=== PATIENT | female | born 1945 | race Caucasian/White ===

== ENCOUNTER 2019-06-28 00:52 | Emergency (ER) | payer MEDICARE, OTHER ==
[~2019-06-28] VITALS: Ht 157.5 cm; Wt 79.4 kg
[2019-06-28] MEDS: IV NORMAL SALINE 1,000ML 1,000 ML IV ONE (02:00)
[2019-06-28] MEDS: FAMOTIDINE 20 MG/2 ML VIAL IVP ONE (02:00)
[2019-06-28] MEDS: ONDANSETRON PF 4 MG/2 ML VIAL. IV ONE (02:00)
[2019-06-28 02:07] LABS: BASO % 0 % (0-3); EOS % 1 % (0-3); HEMOGLOBIN 14.1 g/dL (12.0-15.5); LYMPH % 11 % (24-48); MEAN CORPUSCULAR HEMOGLOBIN 30 pg (25-35); MEAN CORPUSCULAR HGB CONC 34 g/dL (31-37); MEAN CORPUSCULAR VOLUME 87 fL (79-100); MONO # 0.5 x10^3/uL (0.0-1.1); MONO % 6 % (0-9); NEUT # 7.3 x10^3uL (1.8-7.7); NEUT % 82 % (31-73); PLATELET COUNT 86 x10^3/uL (140-400); RED BLOOD COUNT 4.73 x10^6/uL (3.50-5.40); RED CELL DISTRIBUTION WIDTH 14.1 % (11.5-14.5); WHITE BLOOD COUNT 8.9 x10^3/uL (4.0-11.0)
[2019-06-28 02:21] LABS: ALBUMIN 3.8 g/dL (3.4-5.0); ALBUMIN/GLOBULIN RATIO 1.2 (1.0-1.7); CALCIUM 9.2 mg/dL (8.5-10.1); CREATININE 1.1 mg/dL (0.6-1.0); GFR 48.3; POTASSIUM 3.9 mmol/L (3.5-5.1); TOTAL PROTEIN 6.9 g/dL (6.4-8.2)
[2019-06-28 02:23] LABS: BILIRUBIN,URINE NEG (NEG); CLARITY,URINE CLEAR; COLOR,URINE YELLOW; GLUCOSE,URINE NEG (NEG)
[2019-06-28 02:24] LABS: BACTERIA,URINE 0 /HPF (0-FEW); NITRITE,URINE NEG (NEG); RBC,URINE 0 /HPF (0-2); SQUAMOUS EPITHELIAL CELL,UR OCC /LPF; UROBILINOGEN,URINE 0.2 mg/dL (0.2 mg/dL); WBC,URINE OCC /HPF (0-4)
--- NOTE | 2019-06-28 02:41 | RAD ---
EXAM: CT ABDOMEN/PELVIS WITHOUT CONTRAST. HISTORY: Abdominal pain, nausea/vomiting. Renal cancer. TECHNIQUE: Computed tomography of the abdomen and pelvis was performed without intravenous contrast. COMPARISON: 07/08/2010. FINDINGS: Lung windows through the visualized portions of the bases reveal a trace right pleural effusion. There is atelectasis in both bases. Bone windows reveal no suspicious lesions. A large upper abdominal mass appears to arise from a pancreatic head. It measures 12.3 cm craniocaudally and 7.4 x 7.2 cm craniocaudally. There is some dilatation of the upstream pancreatic duct. The upstream pancreas is not atrophic. There is no biliary dilatation. There are changes of left nephrectomy. No local recurrence is identified. There is nodular thickening of the left adrenal gland without a discrete mass. This is stable chronically. The right adrenal gland is unremarkable. 2 mildly hyperdense nodules in the right kidney are indeterminate but may represent proteinaceous/hemorrhagic cysts. These were not seen previously. The largest measures 1.6 cm. Another in the interpolar region is less well seen but measures 1.3 cm. Multiple hypoattenuating hepatic lesions are consistent with cysts. Some have decreased in size. The largest measures 4.5 cm. No suspicious lesions are appreciated without contrast. Gallstones are noted. The spleen is not enlarged. There are no pathologically enlarged lymph nodes. Sigmoid diverticulosis is moderate to severe. A calcification within the uterus is likely a degenerated fibroid measuring 1.1 cm. There is no small bowel obstruction. A rim calcified splenic artery aneurysm distally is stable chronically and measures 1.2 cm. IMPRESSION: 1. A 12 cm mass within the upper abdomen appears to arise from the pancreatic head. Its morphology is not typical of pancreatic adenocarcinoma, though this cannot be excluded. Metastatic disease to the pancreas in the setting of remote renal cell carcinoma, versus other primary pancreatic neoplasms are the main considerations. Postcontrast CT or MRI is recommended when feasible. 2. No local recurrence status post left nephrectomy. 3. Cholelithiasis. 4. Dense nodules in the right kidney may represent proteinaceous cysts but are indeterminate. Again, CT or MRI with/without contrast could further evaluate. 5. Chronically stable rim calcified 1.2 cm splenic artery aneurysm distally. *One or more of the following individualized dose reduction techniques were utilized for this examination: 1. Automated exposure control. 2. Adjustment of the mA and/or kV according to patient size. 3. Use of iterative reconstruction technique. Electronically signed by: Radha Marlow MD (06/28/2019 2:38 AM) [facility]
--- NOTE | 2019-06-28 03:02 | PHYS DOC ---
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 Denies fever/chills. Denies trauma. Denies known sick contacts. Denies constipation. Reports had a "good BM" approximately 3 hours ago. Review of Systems Review of Systems Constitutional: Denies fever or chills Eyes: Denies redness or eye pain HENT: Denies nasal congestion or sore throat Respiratory: Denies cough or shortness of breath Cardiovascular: Denies chest pain or palpitations GI: Reports abdominal pain, nausea, and vomiting : Denies dysuria or hematuria Musculoskeletal: Denies back pain or joint pain Integument: Denies rash or skin lesions Neurologic: Denies headache, focal weakness or sensory changes Complete systems were reviewed and found to be within normal limits, except as documented in this note. Current Medications Current Medications Current Medications Medications (Trade) Dose Ordered Sig/Jing Start Time Stop Time Status Last Admin Dose Admin Famotidine (Pepcid Vial) 20 mg 1X ONCE 06/28/19 02:00 06/28/19 02:01 DC 06/28/19 02:01 20 MG Fentanyl Citrate (Fentanyl 2ml Vial) 25 mcg 1X ONCE 06/28/19 02:00 06/28/19 02:01 DC 06/28/19 02:01 25 MCG Ondansetron HCl (Zofran) 4 mg 1X ONCE 06/28/19 02:00 06/28/19 02:01 DC 06/28/19 02:01 4 MG Sodium Chloride 1,000 ml @ 1,000 mls/hr 1X ONCE 06/28/19 02:00 06/28/19 02:59 06/28/19 02:01 1,000 MLS/HR Allergies Allergies Allergies Coded Allergies Type Severity Reaction Last Updated Verified Sulfa (Sulfonamide Antibiotics) Allergy Intermediate Rash 06/28/19 Yes aspirin Allergy Intermediate Rash 06/28/19 Yes Physical Exam Physical Exam Constitutional: Well developed, well nourished, no acute distress, non-toxic appearance HENT: Normocephalic, atraumatic, oropharynx moist Eyes: Conjunctiva normal, no discharge Neck: Normal range of motion, no tenderness, supple Cardiovascular: Heart rate normal, regular rhythm Lungs & Thorax: Bilateral breath sounds clear to auscultation, no wheezing Abdomen: Soft, LUQ and LLQ pain on palpation, no guarding or rebound tenderness Skin: Warm, dry, no erythema, no rash Back: No tenderness, no CVA tenderness Extremities: No tenderness, ROM intact, no edema Neurologic: Alert and oriented X 3, normal motor function, normal sensory function, no focal deficits noted Psychologic: Affect normal, judgement normal Current Patient Data Vital Signs Vital Signs Date Time Temp Pulse Resp B/P (MAP) Pulse Ox O2 Delivery O2 Flow Rate FiO2 06/28/19 02:50 69 18 152/66 (94) 93 Room Air 06/28/19 01:10 97.7 Lab Results Laboratory Tests Test 06/28/19 01:42 06/28/19 01:51 06/28/19 02:17 White Blood Count 8.9 x10^3/uL (4.0-11.0) Red Blood Count 4.73 x10^6/uL (3.50-5.40) Hemoglobin 14.1 g/dL (12.0-15.5) Hematocrit 41.0 % (36.0-47.0) Mean Corpuscular Volume 87 fL (79-100) Mean Corpuscular Hemoglobin 30 pg (25-35) Mean Corpuscular Hemoglobin Concent 34 g/dL (31-37) Red Cell Distribution Width 14.1 % (11.5-14.5) Platelet Count 86 x10^3/uL (140-400) L Neutrophils (%) (Auto) 82 % (31-73) H Lymphocytes (%) (Auto) 11 % (24-48) L Monocytes (%) (Auto) 6 % (0-9) Eosinophils (%) (Auto) 1 % (0-3) Basophils (%) (Auto) 0 % (0-3) Neutrophils # (Auto) 7.3 x10^3uL (1.8-7.7) Lymphocytes # (Auto) 1.0 x10^3/uL (1.0-4.8) Monocytes # (Auto) 0.5 x10^3/uL (0.0-1.1) Eosinophils # (Auto) 0.0 x10^3/uL (0.0-0.7) Basophils # (Auto) 0.0 x10^3/uL (0.0-0.2) Prothrombin Time 10.4 SEC (9.4-11.4) Prothrombin Time INR 1.0 (0.9-1.1) Activated Partial Thromboplast Time 24 SEC (23-33) Sodium Level 139 mmol/L (136-145) Potassium Level 3.9 mmol/L (3.5-5.1) Chloride Level 103 mmol/L (98-107) Carbon Dioxide Level 31 mmol/L (21-32) Anion Gap 5 (6-14) L Blood Urea Nitrogen 18 mg/dL (7-20) Creatinine 1.1 mg/dL (0.6-1.0) H Estimated GFR (Cockcroft-Gault) 48.3 BUN/Creatinine Ratio 16 (6-20) Glucose Level 156 mg/dL (70-99) H Calcium Level 9.2 mg/dL (8.5-10.1) Magnesium Level 2.0 mg/dL (1.8-2.4) Total Bilirubin 1.0 mg/dL (0.2-1.0) Aspartate Amino Transferase (AST) 360 U/L (15-37) H Alanine Aminotransferase (ALT) 330 U/L (14-59) H Alkaline Phosphatase 185 U/L (46-116) H Total Protein 6.9 g/dL (6.4-8.2) Albumin 3.8 g/dL (3.4-5.0) Albumin/Globulin Ratio 1.2 (1.0-1.7) Lipase 135 U/L (73-393) Urine Collection Type Unknown Urine Color Yellow Urine Clarity Clear Urine pH 8.5 Urine Specific [place] 1.015 Urine Protein Trace (NEG-TRACE) Urine Glucose (UA) Neg mg/dL (NEG) Urine Ketones (Stick) Neg mg/dL (NEG) Urine Blood Neg (NEG) Urine Nitrite Neg (NEG) Urine Bilirubin Neg (NEG) Urine Urobilinogen Dipstick 0.2 mg/dL (0.2 mg/dL) Urine Leukocyte Esterase Neg (NEG) Urine RBC 0 /HPF (0-2) Urine WBC Occ /HPF (0-4) Urine Squamous Epithelial Cells Occ /LPF Urine Bacteria 0 /HPF (0-FEW) Lactic Acid Level 1.3 mmol/L (0.4-2.0) EKG EKG [] Radiology/Procedures Radiology/Procedures PROCEDURE: CT ABDOMEN PELVIS WO CONTRAST EXAM: CT ABDOMEN/PELVIS WITHOUT CONTRAST. HISTORY: Abdominal pain, nausea/vomiting. Renal cancer. TECHNIQUE: Computed tomography of the abdomen and pelvis was performed without intravenous contrast. COMPARISON: 07/08/2010. FINDINGS: Lung windows through the visualized portions of the bases reveal a trace right pleural effusion. There is atelectasis in both bases. Bone windows reveal no suspicious lesions. A large upper abdominal mass appears to arise from a pancreatic head. It measures 12.3 cm craniocaudally and 7.4 x 7.2 cm craniocaudally. There is some dilatation of the upstream pancreatic duct. The upstream pancreas is not atrophic. There is no biliary dilatation. There are changes of left nephrectomy. No local recurrence is identified. There is nodular thickening of the left adrenal gland without a discrete mass. This is stable chronically. The right adrenal gland is unremarkable. 2 mildly hyperdense nodules in the right kidney are indeterminate but may represent proteinaceous/hemorrhagic cysts. These were not seen previously. The largest measures 1.6 cm. Another in the interpolar region is less well seen but measures 1.3 cm. Multiple hypoattenuating hepatic lesions are consistent with cysts. Some have decreased in size. The largest measures 4.5 cm. No suspicious lesions are appreciated without contrast. Gallstones are noted. The spleen is not enlarged. There are no pathologically enlarged lymph nodes. Sigmoid diverticulosis is moderate to severe. A calcification within the uterus is likely a degenerated fibroid measuring 1.1 cm. There is no small bowel obstruction. A rim calcified splenic artery aneurysm distally is stable chronically and measures 1.2 cm. IMPRESSION: 1. A 12 cm mass within the upper abdomen appears to arise from the pancreatic head. Its morphology is not typical of pancreatic adenocarcinoma, though this cannot be excluded. Metastatic disease to the pancreas in the setting of remote renal cell carcinoma, versus other primary pancreatic neoplasms are the main considerations. Postcontrast CT or MRI is recommended when feasible. 2. No local recurrence status post left nephrectomy. 3. Cholelithiasis. 4. Dense nodules in the right kidney may represent proteinaceous cysts but are indeterminate. Again, CT or MRI with/without contrast could further evaluate. 5. Chronically stable rim calcified 1.2 cm splenic artery aneurysm distally. *One or more of the following individualized dose reduction techniques were utilized for this examination: 1. Automated exposure control. 2. Adjustment of the mA and/or kV according to patient size. 3. Use of iterative reconstruction technique. Electronically signed by: Radha Marlow MD (06/28/2019 2:38 AM) [facility] Course & Med Decision Making Course & Med Decision Making Pertinent Labs and Imaging studies reviewed. (See chart for details) Elderly patient presents with left sided abdominal pain. Denies trauma. Rand constipation. Reports some associated nausea. hx of prior nephrectomy for cancer. Pain/nausea addressed IVF hydration given. Labs obtained and posted to chart. LFTs elevated. NO prior laboratory studies for comparison per [facility] review. CT abd/pelvis with findings of mass at pancreatic head. Patient requiring admission for further evaluation and treatment. Discussed with Dr. Hernandez (hospitalist) who is in agreement with admission at [place] due to GI consult capability. Transfer forms signed. Discussed findings and plan with patient, who acknowledges understanding and agreement. Dragon Disclaimer Dragon Disclaimer This electronic medical record was generated, in whole or in part, using a voice recognition dictation system. Departure Departure: Impression: Primary Impression: Pancreatic mass Additional Impression: Elevated LFTs Disposition: 05 TRANSFER OTHER ([facility]) Admitting Physician: Josie Hernandez Condition: GUARDED Referrals: TEOFILO RUSHING MD (PCP) Problem Qualifiers SUSAN VIDALES DO Jun 28, 2019 03:01
[2019-06-28 04:02] VITALS: BP 164/84
== END 2019-06-28 04:45 | disposition short-term general hospital (02) ==
LOC: ER 00:52 → EDBD 00:52 → ER 04:45
DX: K86.89 Other specified diseases of pancreas (principal); R79.89 Other specified abnormal findings of blood chemistry; I10 Essential (primary) hypertension; R11.2 Nausea with vomiting, unspecified; Z87.891 Personal history of nicotine dependence; Z88.2 Allergy status to sulfonamides; Z88.6 Allergy status to analgesic agent
CPT/HCPCS: 36415; 74176; 80053; 81001; 83605; 83690; 83735; 85025; 85610; 85730; 96361; 96374; 96375; 99285; J2405; J3010; J3490; J7030

== ENCOUNTER 2020-04-08 17:02 | Observation (INO) | payer MEDICARE, OTHER ==
[~2020-04-08] VITALS: Ht 157.5 cm; Wt 80.9 kg
--- NOTE | 2020-04-08 17:29 | EKG ---
[address] [address] Test Date: 2020-04-08 Test Time: 17:20:36 Pat Name: MARLON CROOK Department: Room: Gender: F [employer] Department Supervisor: : 1945 Requested By: OTILIO MARTINES Order Number: [id number] Reading MD: David Khan MD Measurements Intervals [place] Rate: 73 P: 37 LA: 208 QRS: -44 QRSD: 174 T: 119 QT: 454 QTc: 504 Interpretive Statements SINUS RHYTHM LBBB Electronically Signed On 04-09-2020 12:24:34 CDT by David Khan MD
--- NOTE | 2020-04-08 17:32 | RAD ---
CT CODE STROKE HEAD WO Clinical indications: Reason: slurred speech, facial droop, code stroke COMPARISON: None available. Technique: Noncontrast axial cross sectional scanning of the head was performed. PQRS compliance Statement One or more of the following individualized dose reduction techniques were utilized for this study: 1. Automated exposure control 2. Adjustment of the mA and/or kV according to patient size 3. Use of iterative reconstruction technique Findings: No acute intracranial hemorrhage or midline shift or mass-effect or hydrocephalus or extra-axial fluid collection is seen. There is a craniotomy of the posterior left parietal region. There is underlying encephalomalacia here with resultant dilatation of the adjacent left lateral ventricle. There is mild to moderate periventricular white matter hypodensity consistent chronic small vessel ischemic disease. 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 No hyperdense MCA sign is seen. No skull fracture or pneumocephalus is seen. No opacification of the mastoid sinuses or the middle ear cavities or the paranasal sinuses is seen. Impression: No acute intracranial hemorrhage is seen. Postoperative changes of the left cerebral hemisphere with encephalomalacia. Chronic small vessel ischemic disease. FOR INTERNAL CODING PURPOSES Critical result: Findings discussed with Dr. OTILIO MARTINES at 04/08/2020 5:28 PM. RESULT CODE: (C) Electronically signed by: Michael Esparza MD (04/08/2020 5:29 PM) [id number]
[2020-04-08 17:35] LABS: BASO # 0.1 x10^3/uL (0.0-0.2); BASO % 1 % (0-3); EOS # 0.3 x10^3/uL (0.0-0.7); EOS % 5 % (0-3); HEMATOCRIT 37.4 % (36.0-47.0); HEMOGLOBIN 12.2 g/dL (12.0-15.5); LYMPH # 1.7 x10^3/uL (1.0-4.8); LYMPH % 32 % (24-48); MEAN CORPUSCULAR HEMOGLOBIN 29 pg (25-35); MEAN CORPUSCULAR HGB CONC 33 g/dL (31-37); MEAN CORPUSCULAR VOLUME 88 fL (79-100); MONO # 0.5 x10^3/uL (0.0-1.1); MONO % 10 % (0-9); NEUT # 2.7 x10^3uL (1.8-7.7); NEUT % 51 % (31-73); PLATELET COUNT 138 x10^3/uL (140-400); RED BLOOD COUNT 4.25 x10^6/uL (3.50-5.40); RED CELL DISTRIBUTION WIDTH 14.2 % (11.5-14.5); WHITE BLOOD COUNT 5.2 x10^3/uL (4.0-11.0)
[2020-04-08 17:45] LABS: CALCIUM 8.8 mg/dL (8.5-10.1); GFR 53.9; POTASSIUM 4.4 mmol/L (3.5-5.1)
[2020-04-08 17:51] LABS: ALBUMIN 3.6 g/dL (3.4-5.0); ALBUMIN/GLOBULIN RATIO 1.2 (1.0-1.7); MAGNESIUM 2.1 mg/dL (1.8-2.4); TOTAL BILIRUBIN 0.4 mg/dL (0.2-1.0); TOTAL PROTEIN 6.5 g/dL (6.4-8.2)
[2020-04-08 17:51] LABS: CLARITY,URINE CLEAR; GLUCOSE,URINE NEG (NEG)
[2020-04-08 17:52] LABS: BACTERIA,URINE 0 /HPF (0-FEW); BILIRUBIN,URINE NEG (NEG); COLOR,URINE YELLOW; NITRITE,URINE NEG (NEG); RBC,URINE OCC /HPF (0-2); SQUAMOUS EPITHELIAL CELL,UR OCC /LPF; UROBILINOGEN,URINE 0.2 mg/dL (0.2 mg/dL); WBC,URINE OCC /HPF (0-4)
--- NOTE | 2020-04-08 18:01 | RAD ---
EXAM: PORTABLE CHEST 1V INDICATION: Reason: SOA / Spl. Instructions: / History: . TECHNIQUE: Single view COMPARISON: 07/08/2010 chest x-ray FINDINGS: The heart size is borderline enlarged, increased from prior.. The great vessels appear unremarkable. There is no hilar or mediastinal mass. The lungs are clear. There is no pleural effusion or pneumothorax. There are no significant osseous abnormalities. IMPRESSION: Borderline cardiomegaly. Otherwise no active cardiopulmonary disease. Electronically signed by: Lalo Shin MD (04/08/2020 5:58 PM) [facility]
--- NOTE | 2020-04-08 18:06 | PHYS DOC ---
Past History Past Medical History: Cancer, Hypertension, Stroke, Other Past Surgical History: Other Additional Past Surgical Histo: Brain surgery, left nephrectomy Smoking: Quit Greater Than 1 Year Alcohol Use: None Drug Use: None General Adult EDM: Chief Complaint: NEURO SYMPTOMS/DEFICITS HPI: HPI: Patient is a 74-year-old female who was brought here from the skilled nursing due to slow speech, worsening right-sided weakness. Per EMS report symptoms, her last known normal was at 3 PM however when we called the skilled nursing talking with the nurse over the who stated that they started to notice worse right-sided weakness and slurred speech when the patient called them at 4 pm. Patient stated that she woke up this morning at 7 AM, was at her baseline. She ate breakfast, then ate lunch, patient stated that she went to see take a nap around 1 PM, and she woke up at around 4 PM and could not move her right side. It was documented in her medical record that patient is DNR, had intermittent right side weakness, expressive a fascia due to intracranial hemorrhage. Patient also had epilepsy, is on Keppra. Review of Systems: Review of Systems: Constitutional: Denies fever or chills Eyes: Denies change in visual acuity HENT: Denies nasal congestion or sore throat Respiratory: Denies cough or shortness of breath Cardiovascular: Denies chest pain or edema GI: Denies abdominal pain, nausea, vomiting, bloody stools or diarrhea : Denies dysuria Musculoskeletal: Denies back pain or joint pain Integument: Denies rash Neurologic: positive for right side weakness, slurred speech, trouble finding the right word to say Endocrine: Denies polyuria or polydipsia Lymphatic: Denies swollen glands Psychiatric: Denies depression or anxiety Heart Score: Risk Factors: Risk Factors: DM, Current or recent (<one month) smoker, HTN, HLP, family history of CAD, obesity. Risk Scores: Score 0 - 3: 2.5% MACE over next 6 weeks - Discharge Home Score 4 - 6: 20.3% MACE over next 6 weeks - Admit for Clinical Observation Score 7 - 10: 72.7% MACE over next 6 weeks - Early Invasive Strategies Allergies: Allergies: Allergies Coded Allergies Type Severity Reaction Last Updated Verified Sulfa (Sulfonamide Antibiotics) Allergy Intermediate Rash 06/28/19 Yes aspirin Allergy Intermediate Rash 06/28/19 Yes Physical Exam: PE: Constitutional: Well developed, well nourished, no acute distress, non-toxic appearance. [] HENT: Normocephalic, atraumatic, bilateral external ears normal, oropharynx moist, no oral exudates, nose normal. [] Eyes: PERRLA, EOMI, conjunctiva normal, no discharge. [] Neck: Normal range of motion, no tenderness, supple, no stridor. [] Cardiovascular:Heart rate regular rhythm, no murmur [] Lungs & Thorax: Bilateral breath sounds clear to auscultation [] Abdomen: Bowel sounds normal, soft, no tenderness, no masses, no pulsatile masses. [] Skin: Warm, dry, no erythema, no rash. [] Back: No tenderness, no CVA tenderness. [] Extremities: No tenderness, no cyanosis, no clubbing, ROM intact, no edema. [] Neurologic: Alert and oriented X 3, able to move right upper extremity, able to move right leg but significantly weak, able to lift it up but drop to the bed slowly, obvious right side facial droop with expressive aphasia. Psychologic: Affect normal, judgement normal, mood normal. [] Current Patient Data: Labs: Laboratory Tests Test 04/08/20 17:11 04/08/20 17:24 04/08/20 17:27 White Blood Count 5.2 x10^3/uL (4.0-11.0) Red Blood Count 4.25 x10^6/uL (3.50-5.40) Hemoglobin 12.2 g/dL (12.0-15.5) Hematocrit 37.4 % (36.0-47.0) Mean Corpuscular Volume 88 fL (79-100) Mean Corpuscular Hemoglobin 29 pg (25-35) Mean Corpuscular Hemoglobin Concent 33 g/dL (31-37) Red Cell Distribution Width 14.2 % (11.5-14.5) Platelet Count 138 x10^3/uL (140-400) L Neutrophils (%) (Auto) 51 % (31-73) Lymphocytes (%) (Auto) 32 % (24-48) Monocytes (%) (Auto) 10 % (0-9) H Eosinophils (%) (Auto) 5 % (0-3) H Basophils (%) (Auto) 1 % (0-3) Neutrophils # (Auto) 2.7 x10^3uL (1.8-7.7) Lymphocytes # (Auto) 1.7 x10^3/uL (1.0-4.8) Monocytes # (Auto) 0.5 x10^3/uL (0.0-1.1) Eosinophils # (Auto) 0.3 x10^3/uL (0.0-0.7) Basophils # (Auto) 0.1 x10^3/uL (0.0-0.2) Prothrombin Time 10.6 SEC (9.4-11.4) Prothrombin Time INR 1.0 (0.9-1.1) Activated Partial Thromboplast Time 24 SEC (23-33) Sodium Level 141 mmol/L (136-145) Potassium Level 4.4 mmol/L (3.5-5.1) Chloride Level 104 mmol/L (98-107) Carbon Dioxide Level 29 mmol/L (21-32) Anion Gap 8 (6-14) Blood Urea Nitrogen 13 mg/dL (7-20) Creatinine 1.0 mg/dL (0.6-1.0) Estimated GFR (Cockcroft-Gault) 53.9 BUN/Creatinine Ratio 13 (6-20) Glucose Level 100 mg/dL (70-99) H Calcium Level 8.8 mg/dL (8.5-10.1) Magnesium Level 2.1 mg/dL (1.8-2.4) Total Bilirubin 0.4 mg/dL (0.2-1.0) Aspartate Amino Transferase (AST) 23 U/L (15-37) Alanine Aminotransferase (ALT) 44 U/L (14-59) Alkaline Phosphatase 83 U/L (46-116) Troponin I Quantitative < 0.017 ng/mL (0-0.055) WN-Nbb-G-Type Natriuretic Peptide 948 pg/mL (0-449) H Total Protein 6.5 g/dL (6.4-8.2) Albumin 3.6 g/dL (3.4-5.0) Albumin/Globulin Ratio 1.2 (1.0-1.7) Glucose (Fingerstick) 100 mg/dL (70-99) H Urine Collection Type U cath Urine Color Yellow Urine Clarity Clear Urine pH 6.5 Urine Specific [place] 1.020 Urine Protein Neg (NEG-TRACE) Urine Glucose (UA) Neg mg/dL (NEG) Urine Ketones (Stick) Neg mg/dL (NEG) Urine Blood Neg (NEG) Urine Nitrite Neg (NEG) Urine Bilirubin Neg (NEG) Urine Urobilinogen Dipstick 0.2 mg/dL (0.2 mg/dL) Urine Leukocyte Esterase Neg (NEG) Urine RBC Occ /HPF (0-2) Urine WBC Occ /HPF (0-4) Urine Squamous Epithelial Cells Occ /LPF Urine Bacteria 0 /HPF (0-FEW) Vital Signs: Vital Signs Date Time Temp Pulse Resp B/P (MAP) Pulse Ox O2 Delivery O2 Flow Rate FiO2 04/08/20 17:20 98.4 78 16 142/74 (96) 95 Room Air EKG: EKG: EKG was done at 1720, heart rate 73 bpm, left bundle branch block, no ST segment elevation. [] Radiology/Procedures: Radiology/Procedures: []Signed PATIENT: MARLON CROOK ACCOUNT: [id number] : 1945 LOCATION: ER AGE: 74 SEX: F EXAM STATUS: REG ER ORD. PHYSICIAN: OTILIO MARTINES DO REASON: slurred speech, facial droop, code stroke PROCEDURE: CT CODE STROKE HEAD WO CT CODE STROKE HEAD WO Clinical indications: Reason: slurred speech, facial droop, code stroke COMPARISON: None available. Technique: Noncontrast axial cross sectional scanning of the head was performed. PQRS compliance Statement One or more of the following individualized dose reduction techniques were utilized for this study: 1. Automated exposure control 2. Adjustment of the mA and/or kV according to patient size 3. Use of iterative reconstruction technique Findings: No acute intracranial hemorrhage or midline shift or mass-effect or hydrocephalus or extra-axial fluid collection is seen. There is a craniotomy of the posterior left parietal region. There is underlying encephalomalacia here with resultant dilatation of the adjacent left lateral ventricle. There is mild to moderate periventricular white matter hypodensity consistent chronic small vessel ischemic disease. 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 No hyperdense MCA sign is seen. No skull fracture or pneumocephalus is seen. No opacification of the mastoid sinuses or the middle ear cavities or the paranasal sinuses is seen. Impression: No acute intracranial hemorrhage is seen. Postoperative changes of the left cerebral hemisphere with encephalomalacia. Chronic small vessel ischemic disease. FOR INTERNAL CODING PURPOSES Critical result: Findings discussed with Dr. OTILIO MARTINES at 04/08/2020 5:28 PM. RESULT CODE: (C) Course & Med Decision Making: Course & Med Decision Making Pertinent Labs and Imaging studies reviewed. (See chart for details) Patient's NIH stroke scale upon arrival was 7. Her NIH stroke scale repeated at 6 PM, score at 2. Patient says she feels much better. Patient case was discussed with patient skilled nursing doctor Dr. Hernandez who conferred that patient had intermittent history of expressive a fascia with right-sided weakness due to history of atraumatic intracranial hemorrhage status post craniotomy. Dr. Hernandez stated that he had admitted her to hospital in the past for exact same symptoms, extensive work-up including MRI her brain did not show any acute problem. Patient's case was discussed with the neurologist on-call Dr. Hooper, who recommended no IV TPA due to uncertain time of onset of event and history of intraparenchymal hemorrhage in the past. He recommends her to be admitted to hospital for further evaluation and work-up. Discussed with Dr. Smith who agreed to admit the patient. With patient history and onset of symptom, patient obviously had strokelike symptoms, however she is not a candidate for IV TPA. Patient will be admitted to hospital for further evaluation and treatment. Her NIH stroke scale improved significantly, it is possible patient suffered a seizure while she was in her sleep, and when she woke up she was in postictal stage. Dragon Disclaimer: Dragon Disclaimer: This electronic medical record was generated, in whole or in part, using a voice recognition dictation system. Departure Departure: Impression: Primary Impression: Acute cerebrovascular accident (CVA) Disposition: ADMITTED INPATIENT Admitting Physician: Deep Smith Condition: STABLE Referrals: TEOFILO RUSHING MD (PCP) OTILIO MARTINES DO April 08, 2020 18:06
--- NOTE | 2020-04-08 20:09 | RAD ---
Examination: DOPPLER CAROTID BILAT History: Reason: SLURRED SPEECH, APHASIA, RIGHT SIDE WEAKNESS / Spl. Instructions: / History: Comparison study: None available. Findings: The common, internal and external carotid arteries were examined by grayscale, color and spectral Doppler ultrasound. Mild plaque and intimal thickening is noted. Plaque is primarily seen at the carotid bulb regions and bifurcation. Flow in both vertebral arteries was antegrade and normal. The following are the velocities and ratios in the carotid arteries on both sides: RIGHT ICA PV: 69 cm/sec RIGHT CCA PV: 100 cm/sec RIGHT ICA ED: 20 cm/sec RIGHT IC/CCPV: 0.93 RIGHT VERTEBRAL: antegrade flow LEFT ICA PV: 77 cm/sec LEFT CCA PV: 124 cm/sec LEFT ICA ED: 26 cm/sec LEFT IC/CCPV: 0.97 LEFT VERTEBRAL: antegrade flow <50% ICA Stenosis: PSV < 125cm/s (EDV < 40cm/s; SVR < 2.0) 50-69% ICA Stenosis: PSV < 125-229cm/s (EDV 40-99cm/s; SVR 2.0-3.9) >70% ICA Stenosis: PSV > 230cm/s (EDV >100cm/s; SVR >4.0) Incidental note is made of a dominant left thyroid nodule measuring 2.9 cm x 2.7 cm tall by 2.8 cm. It is hypoechoic and mildly heterogeneous. It is well circumscribed with a lobulated contour and has flow on color Doppler imaging. There is a right thyroid lobe nodule measuring up to 1.3 cm diameter and it is also hypoechoic and slightly heterogeneous. It is well-circumscribed measuring 1.1 cm tall. No significant flow within this nodule. Impression: No hemodynamic stenosis. Mild plaque and intimal thickening. Bilateral thyroid nodules. Dominant left thyroid lobe nodule. TI-RADS 4-fine needle aspiration of the dominant left thyroid nodule is recommended on a nonemergent basis if long-term stability is unknown. PQRS Compliance Statement - Stenosis calculations for CT, MR and conventional angiography are based upon measurement of the distal ICA diameter in accordance with the NASCET methodology. Stenosis calculations for carotid ultrasound studies are derived from validated velocity criteria which are known to correlate with the NASCET methodology. Electronically signed by: Randy Salgado MD (04/08/2020 8:06 PM) [place] [id number]
[2020-04-08 20:31] VITALS: BP 153/87
[2020-04-08] MEDS ORDERED: MULT-246 PO (21:26)
[2020-04-08] MEDS ORDERED: LISI10TA2 PO (21:26)
[2020-04-08] MEDS ORDERED: ATOR40TA59 PO (21:26)
[2020-04-08] MEDS ORDERED: FAMO-63 PO (21:26)
[2020-04-08] MEDS ORDERED: LEVE100020 PO (21:26)
[2020-04-08] MEDS ORDERED: POLY15DR20 EACHEYE (21:26)
[2020-04-08] MEDS ORDERED: CARV25TA PO (21:26)
[2020-04-08] MEDS ORDERED: CYCL1DRO LEFTEYE (21:26)
[2020-04-08] MEDS ORDERED: ACETAMINOPHEN 500 MG TABLET PO PRN (21:45)
[2020-04-08] MEDS ORDERED: POLYVINYL ALCOHOL 1.4% OPHTH SOLUTION 15ML BOTTLE. OU PRN (22:00)
[2020-04-08 22:13] VITALS: BP 132/75
--- NOTE | 2020-04-08 22:20 | NUR ---
The patient, MARLON CROOK, 74 y/o, F admitted by SUSHMA TAMEZ MD, was given written information regarding hospital policies, unit procedures and contact persons. Valuables were checked, pt vitals were taken, and pt is being monitored via tele monitor. pt had no complaints of pain or shortness of breath. pt is currently resting in bed. will continue to monitor.
[2020-04-08] MEDS: levETIRAcetam 500 MG TABLET PO SCH (22:22)
[2020-04-08] MEDS: cycloSPORINE 0.05% OPTH 1 DROP DROPERETTE OU SCH (22:22)
--- NOTE | 2020-04-09 03:22 | CONS ---
DATE OF CONSULTATION: 04/08/2020 NEUROLOGY CONSULTATION REFERRING PHYSICIAN: Dr. Hernandez. REASON FOR CONSULTATION: Rule out stroke versus TIA. HISTORY OF PRESENT ILLNESS: This is a 74-year-old right-handed female who was admitted through Emergency Room today after she presented with intermittent right-sided weakness, slurred speech and difficulty finding words. According to the patient, she had longstanding history of renal cell carcinoma, required left nephrectomy in 1999. 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 Subsequently, the patient has had intermittent right-sided weakness complicated with seizure for which she required anticonvulsant as Keppra. She has not had any recurrent seizure, however. She has been doing well until 1:00 in the afternoon when she took a nap for 3 hours, upon arising at 4:00 p.m. she felt having difficulty talking, finding words and increased weakness of the right upper and lower extremities, as the patient stated she could not walk or talk. On arrival to Emergency Room, the patient was alert and oriented. Her speech was fine except for difficulty finding words and she complains of intermittent headaches. She denies any recent head injuries or fall. According to the patient, she has had intermittent difficulty talking or finding words. Initial nonenhanced head CT scan revealed evidence of small vessel ischemic changes and left craniotomy after she had metastasis to the brain. PAST MEDICAL HISTORY: Significant for hypertension; history of stroke, probably hemorrhagic as described above, hemorrhagic stroke in 2002. Renal cell carcinoma required left nephrectomy. GERD, prediabetes, possible cardiomyopathy. SOCIAL HISTORY: The patient is a residential resident. She quit smoking a year ago. She denies alcohol drinking or illicit drug use. CURRENT HOME MEDICATIONS: The list is not available at this time, but she takes lisinopril for hypertension. ALLERGIES: Patient is allergic to SULFA DRUGS and ASPIRIN. FAMILY HISTORY: Positive for diabetes mellitus, coronary artery disease and stroke. REVIEW OF SYSTEMS: A 10-point review of system was performed as mentioned above in history of present illness. PHYSICAL EXAMINATION: GENERAL: Well-developed, well-nourished female, not in acute distress. She weighs 81.8 kilos. VITAL SIGNS: Blood pressure 153/87, respiratory rate 20, pulse rate is ____, oxygen saturation 93% and temperature is 97.7. HEENT: Normocephalic, atraumatic, otherwise unremarkable. NECK: Supple. Negative for carotid bruit, lymphadenopathy or thyromegaly. LUNGS: Clear to A and P. CARDIOVASCULAR: Regular rate and rhythm, normal S1, S2. ABDOMEN: Soft. Bowel sounds positive. EXTREMITIES: Negative for cyanosis, clubbing or edema. NEUROLOGICAL EXAM: Mental Status: The patient is alert and oriented x 3. The speech is fluent; however, she has intermittently difficulty finding words and completing sentences and she stated this is due to this kind of aphasia as going to previous stroke. There is no language dysfunction. Memory, judgment, and abstracting thinking are fair. The patient denies hallucination or delusion. CRANIAL NERVES: Visual ruiz are full. The pupils are reactive to light and accommodation. The extraocular movements are intact. There is no nystagmus. There is no facial motor or sensory deficits. Hearing is intact bilaterally. The palate is elevated symmetrically. Sternocleidomastoid muscles are powerful bilaterally. The patient shrugs her shoulders symmetrically, protrudes her tongue in the midline without fasciculation or atrophy. Motor examination: No focal muscle bulk was seen. The tone is normal. The strength is 4/5 throughout. Sensory examination: Revealed normal pinprick and light touch senses. Deep tendon reflexes were symmetric and hypoactive with absent Achilles responses. Gait not tested. CURRENT HOME MEDICATIONS: Include Lipitor 40 mg p.o. at bedtime; Coreg 25 mg twice daily; Keppra 1000 mg twice daily; lisinopril 10 mg p.o. daily; multivitamins; Pepcid 20 mg twice daily; cyclosporine eye drops, 1 drop to left eye twice daily. LABORATORY DATA: CBC revealed white blood cells of 5.2 thousand, hemoglobin 12.2, hematocrit 37.4, platelet count 138,000. Chemistry revealed sodium of 141, potassium 4.4, chloride 104, CO2 of 29, BUN 13, creatinine ____, glucose 100, calcium 8.8. Troponin level is normal with elevated NPB at 948. IMAGING: Head CT scan is negative for intracranial acute changes, but positive for small vessel ischemic changes. Chest x-ray revealed no evidence of acute cardiopulmonary process and carotid Doppler study revealed no evidence of significant carotid artery stenosis. IMPRESSION: 1. Possible transient ischemic attack, presented with intermittent right-sided weakness and slurred speech and difficulty finding words in a patient with history of left hemispheric hemorrhagic stroke in 2002 and history of left cerebral hemisphere metastasis, required craniotomy. 2. Multiple medical problems to include diabetes mellitus, hypertension; gastroesophageal reflux disease; history of renal cell carcinoma, required left nephrectomy with possible bone metastasis and brain metastasis required craniotomy as described above. RECOMMENDATION: 1. Continue with current home medications. 2. Continue with management initiated with Dr. Hernandez. 3. Physical therapy evaluation. 4. Speech therapy. M Hiram DUDLEY MD DR: LEONARD/daniel JOB#: [id number] / [id number]
[2020-04-09 05:46] VITALS: BP 128/78
[2020-04-09] MEDS ORDERED: FAMOTIDINE 20 MG TABLET PO SCH (07:30)
[2020-04-09] MEDS: cycloSPORINE 0.05% OPTH 1 DROP DROPERETTE OU SCH (08:03)
[2020-04-09 08:04] VITALS: BP 128/78
[2020-04-09] MEDS: levETIRAcetam 500 MG TABLET PO SCH (08:04)
[2020-04-09] MEDS ORDERED: LISINOPRIL 10 MG TABLET PO SCH (09:00)
[2020-04-09] MEDS ORDERED: MULTIVITAMIN with MINERAL TABLET. PO SCH (09:00)
--- NOTE | 2020-04-09 09:18 | DS ---
DATE OF DISCHARGE: 04/09/2020 ATTENDING PHYSICIAN: Dr. Tamez FINAL DISCHARGE DIAGNOSES: 1. Transient ischemic attack, resolved. 2. Old cerebrovascular accident with residual right-sided hemiparesis. 3. Hypertension. 4. Seizure disorder. 5. Gastroesophageal reflux disease. HISTORY OF PRESENT ILLNESS: This is a very pleasant 74-year-old female, in independent living. She had symptoms of weakness on the right side with a history of old previous stroke. She had some trouble finding words. She was admitted then for further treatment and evaluation. PHYSICAL EXAMINATION: Please see the dictated note. PERTINENT LABORATORY AND X-RAY STUDIES: CBC was within normal range. Chemistry panel unremarkable. Nonfasting blood sugar 100. Cardiac enzymes negative for myocardial necrosis. CT of the head demonstrated no acute strokes. She has had previous postoperative changes and encephalomalacia in the left cerebral hemisphere. Chest x-ray was clear. Carotid Doppler studies showed no hemodynamic stenosis, with minimal plaquing. COURSE IN THE HOSPITAL: The patient was admitted, observed. Neurology consultation was obtained, Dr. Hooper. Assessment is appropriate. She feels that she is back to her baseline. Home meds were continued. On the next hospital day, she was up and ambulating, speaking well, had no complaints. She wanted to go back home. She is released back to her assisted living situation at [facility]. Her discharge meds are unchanged. She will continue her Lipitor, Coreg, cyclosporine, Pepcid, Keppra, lisinopril, multivitamin and eye drops. She was discharged in stable condition with explicit drug and followup care. SUSHMA TAMEZ MD DR: JAMA/daniel JOB#: [id number] / [id number] HILARY Gill MD
--- NOTE | 2020-04-09 09:20 | HP ---
ADMIT DATE: 04/08/2020 ATTENDING PHYSICIAN: Sushma Tamez MD CHIEF COMPLAINT: Weakness. HISTORY OF PRESENT ILLNESS: This is a 74-year-old female at assisted living, admitted through the ED today with intermittent right sided weakness, slurred speech and difficulty finding words. She had a previous nephrectomy 20 years ago for renal cell carcinoma, also a right sided stroke with right sided hemiparesis and seizure disorder. She has been on Keppra. She was doing well until 1:00 in the afternoon, she took a nap, she felt difficulty finding words, increased weakness in the right side. She was admitted for further treatment and evaluation. PERTINENT PAST MEDICAL HISTORY: Significant for hypertension, stroke, hemiparesis, renal cell cancer, nephrectomy, gastroesophageal reflux disease and prediabetes. SOCIAL HISTORY: No alcohol or drug use. She quit smoking a couple of years ago. CURRENT MEDICATIONS: Reviewed. She takes Lipitor, Coreg, cyclosporine, Pepcid, Keppra, lisinopril, multivitamin, polyvinyl alcohol. ALLERGIES: She has allergies to SULFA DRUGS and ASPIRIN. FAMILY HISTORY: Noncontributory. REVIEW OF SYSTEMS: Significant for the neurologic symptoms. She has been followed by Dr. Hooper in the past. All other systems reviewed and turned to be negative. PHYSICAL EXAMINATION: GENERAL: I saw her, this is a pleasant elderly female. INITIAL VITAL SIGNS: Showed a blood pressure of 128/78, pulse is 70 and regular. She was afebrile, oxygen saturation 96% on room air. HEENT: Head is without trauma. Pupils are reactive. Sclerae nonicteric. Oropharynx clear. NECK: Supple, no bruits. LUNGS: Clear. CARDIOVASCULAR: Showed regular heart tones. No gallops. Peripheral pulses are palpable. ABDOMEN: Soft, scaphoid, nontender, no organomegaly. Bowel sounds are normoactive. EXTREMITIES: Showed no cyanosis or edema. NEUROLOGIC: She has good parking attendant that are almost symmetrical. There is slight weakness on the right side. She is fully ambulatory. Her speech is actually quite fluent. PERTINENT LABORATORY AND X-RAY STUDIES: Hemoglobin maintained at 12.2 of g/dL with white count of 5200. Electrolytes, BUN and creatinine, blood sugar are all within normal range. Cardiac enzymes were within normal limits without coronary ischemia. The obligatory CT of the head showed no acute process, postoperative change of left cerebral hemisphere with encephalomalacia. Chest x-ray was interpreted as borderline cardiomegaly, otherwise clear. ASSESSMENT: 1. This 74-year-old female has transient ischemic attack. 2. Old cerebrovascular accident. 3. Previous hemorrhagic stroke. 4. Essential hypertension. 5. Seizure disorder. PLAN: 1. Continue home meds. 2. Observation status. 3. Neurology consultation in the morning. SUSHMA TAMEZ MD DR: JAMA/daniel JOB#: [id number] / [id number] HILARY Gill MD
--- NOTE | 2020-04-09 12:18 | NUR ---
NURSING NOTE DISCHARGE PT DISCHARGED BACK TO [facility] VIA [facility]. REPORT CALLED TO ROBERTO. PT GIVEN EDUCATION ABOUT STROKE PREVENTION AND SAFETY, SIGNS AND SYMPTOMS. NO SCRIPTS GIVEN TO PT PER DR TAMEZ. PT EDUCATED ABOUT FALL PREVENTION AND IN HOME SAFETY. PT WAS CAUGHT A FEW TIMES UP IN HER ROOM WITHOUT CALLING FOR HELP. NO COMPLICATIONS. SEBASTIAN CLAYTON.
--- NOTE | 2020-04-09 20:46 | PN ---
DATE: SUBJECTIVE: The patient denies any new medical or neurological complaints. She denies headaches, visual disturbances, chest pain, shortness of breath or palpitation, dysarthria or dysphagia. OBJECTIVE: GENERAL: Well-developed, well-nourished female, not in acute distress. VITAL SIGNS: Blood pressure 128/78, respiratory rate 20, pulse is 70, temperature 97.7, oxygen saturation 96% on room air. HEENT: Normocephalic, atraumatic, otherwise unremarkable. NECK: Supple. Negative for carotid bruit, lymphadenopathy or thyromegaly. LUNGS: Clear to A and P. CARDIOVASCULAR: Regular rate and rhythm, normal S1, S2. There is no S3, S4 or murmur. ABDOMEN: Soft. Bowel sounds positive. EXTREMITIES: Negative for cyanosis, clubbing or edema. NEUROLOGICAL EXAM: Mental Status: The patient is alert and oriented x 3. Speech is more fluent. There is no language dysfunction. Memory, judgment, and abstract thinking are fair. The patient denies hallucination or delusion. Cranial nerves are intact. No focal motor or sensory deficit. Deep tendon reflexes were symmetric and hypoactive with absent Achilles responses. Gait: the patient uses a walker for ambulation. IMPRESSION: 1. Possible transient ischemic attack -- improved. 2. Intermittent expressive aphasia and difficulty finding words, probably due to a previous stroke. 3. Multiple medical problems include prediabetes mellitus, hypertension, gastroesophageal reflux disease, history of renal cell carcinoma, status post craniotomy to remove metastatic lesions and seizure. RECOMMENDATIONS: 1. Continue with current management initiated by Dr. Smith. 2. PT/OT. M Hiram DUDLEY MD DR: LEONARD/daniel JOB#: [id number] / [id number]
== END 2020-04-09 12:20 ==
LOC: ER 17:02 → INTOOBSV 17:57 → 1 SOUTH 17:57
PROVIDERS: ADMIT Hospitalist; ATTEND Hospitalist
DX: G45.9 Transient cerebral ischemic attack, unspecified (principal); I63.9 Cerebral infarction, unspecified; I10 Essential (primary) hypertension; G40.909 Epilepsy, unspecified, not intractable, without status epilepticus; K21.9 Gastro-esophageal reflux disease without esophagitis; C64.9 Malignant neoplasm of unspecified kidney, except renal pelvis; G81.90 Hemiplegia, unspecified affecting unspecified side; Z98.890 Other specified postprocedural states; Z87.891 Personal history of nicotine dependence; Z79.899 Other long term (current) drug therapy
CPT/HCPCS: 36415; 70450; 71045; 80053; 80177; 81001; 82947; 83735; 83880; 84484; 85025; 85610; 85730; 93005; 93880; 97166; 99285; G0378; G0379